=== PATIENT | male | born 1940 | race Caucasian/White ===

== ENCOUNTER 2016-11-30 01:44 | Emergency (ER) | payer OTHER ==
[~2016-11-30] VITALS: Ht 162.6 cm; Wt 74.8 kg
--- NOTE | 2016-11-30 03:44 | ED GI/GU/ABDOMINAL COMPLAINT ---
History of Present Illness General Chief Complaint: Male Genitourinary Problems Stated Complaint: URINATING BLOOD Source: patient Exam Limitations: no limitations Vital Signs & Intake/Output Vital Signs & Intake/Output ED Intake and Output 12/01 0000 11/30 1200 Intake Total 0 Output Total Balance 0 Intake, Oral 0 Patient 165 lb Weight Allergies Coded Allergies: No Known Allergies (11/30/16) Reconcile Medications Ciprofloxacin HCl (Cipro) 500 MG TABLET 1 TAB PO BID INFECTION Tamsulosin HCl (Flomax) 0.4 MG CAP.ER.24H 1 CAP PO DAILY KIDNEY STONE Triage Note: PT TO ED COMPLAINING OF "A LOT OF BLOOD IN URINE." PT STATES HE WOKE UP THIS AM TO URINATE AD NOTICED A LOT OF BLOOD AND CLOTS WITH URINATION. PT DENIES ANY PAIN. Triage Nurses Notes Reviewed? yes Onset: Abrupt Duration: day(s): (1) Timing: multiple episodes today Quality/Severity: moderate, PRESSURE Location: suprapubic Radiation: no radiation Activities at Onset: none No Modifying Factors: none Associated Symptoms: DYSURIA, HESITANCY HPI: This is a 76-year-old male who presents to the ER with chief complaint of sudden onset hematuria and difficulty urinating since 7:00 last night. Denies any fever or chills. He states it is difficult time voiding but then was finally able to push the urine out. Currently he does not feel like he has any retained urine. No history of similar symptoms. Patient has a history of elevated prostate levels and is just being monitored. No history of previous UTIs or urinary retention in the past. Past History Travel History Traveled to [place] past 21 day No Medical History Any Pertinent Medical History? see below for history Cardiovascular: hypertension, HIGH CHOLESTEROL Endocrine: diabetes Surgical History Surgical History: non-contributory Psychosocial History What is your primary language Ethiopian Tobacco Use: Never used ETOH Use: denies use Illicit Drug Use: denies illicit drug use Family History Hx Contributory? No Review of Systems Review of Systems Constitutional: Denies: chills, fever. EENTM: Reports: no symptoms. Respiratory: Denies: cough, short of breath. Cardiovascular: Denies: chest pain, palpitations. GI: Reports: abdominal pain (PRESSURE). Genitourinary: Reports: hematuria. Musculoskeletal: Reports: no symptoms. Skin: Reports: no symptoms. Neurological/Psychological: Reports: no symptoms. Hematologic/Endocrine: Reports: bleeding, polyuria. Denies: polydipsia. Immunologic/Allergic: Denies: splenectomy. All Other Systems: Reviewed and Negative Physical Exam Physical Exam General Appearance: well developed/nourished, alert, awake, anxious, mild distress Head: atraumatic, normal appearance Eyes: Bilateral: normal appearance, PERRL, EOMI. Ears, Nose, Throat, Mouth: hearing grossly normal, moist mucous membrane Neck: normal inspection, supple, full range of motion Respiratory: normal breath sounds, chest non-tender, no respiratory distress Cardiovascular: regular rate/rhythm Peripheral Pulses: 2+ radial (R), 2+ radial (L) Gastrointestinal: normal bowel sounds Back: normal inspection, normal range of motion Extremities: normal range of motion Neurologic/Psych: no motor/sensory deficits, awake, alert, oriented x 3, normal gait Skin: intact, normal color, warm/dry Core Measures ACS in differential dx? No Severe Sepsis Present: No Septic Shock Present: No Progress Differential Diagnosis: ureterolithiasis, urinary retention, UTI/pyelo, BPH, PROSTATITIS Plan of Care: Orders Procedure Date/time Status MISTAKE 11/30 035 Active Add-on Test (ER Only) 11/30 0316 Active URINALYSIS 11/30 152 Complete CULTURE,URINE 11/30 151 Active Laboratory Tests 11/30/16 0300: Urine Color Cancelled, Urine Clarity Cancelled, Urine pH Cancelled, Ur Specific [place]ill Cancelled, Urine Protein Cancelled, Urine Ketones Cancelled, Urine Nitrite Cancelled, Urine Bilirubin Cancelled, Urine Urobilinogen Cancelled, Ur Leukocyte Esterase Cancelled, Ur Microscopic Cancelled, Urine Hemoglobin Cancelled, Urine Glucose Cancelled 11/30/16 0153: Urine Color BLDY H, Urine Clarity TURBD H, Urine pH 7.0, Ur Specific Merrill 1.015, Urine Protein >=300 H, Urine Ketones 15 H, Urine Nitrite POS H, Urine Bilirubin NEG, Urine Urobilinogen >=8.0 H, Ur Leukocyte Esterase LARGE H, Ur Microscopic SEDIMENT EXAMINED, Urine RBC PACKD H, Urine WBC RARE, Ur Epithelial Cells RARE, Urine Hemoglobin LARGE H, Urine Glucose 100 H Microbiology 11/30 152 URINE ROUT: Urine Culture - RECD URINALYSIS, URINE CULTURE ORDERED. PO CIPRO GIVEN. ORTHOSTATICS NEGATIVE. VITAL SIGNS STABLE. (DUSTIN CHUNG,[place]) Initial ED EKG: none Departure Departure Time of Disposition: 410 Disposition: HOME OR SELF CARE Condition: Stable Clinical Impression Primary Impression: UTI (urinary tract infection) Secondary Impressions: Hematuria Referrals: UNKNOWN (PCP/Family) Additional Instructions: Take the Cipro and Flomax as directed. Drink plenty of fluids. Please follow up with urologist in the office. Return to the ER for any changing worsening symptoms, fever, chills, difficulty voiding or abdominal pain. Departure Forms: Customer Survey General Discharge Information Prescriptions: Current Visit Scripts Ciprofloxacin HCl (Cipro) 1 TAB PO BID #14 TAB Tamsulosin HCl (Flomax) 1 CAP PO DAILY #14 CAP
[2016-11-30] MEDS ORDERED: FLOMAX0.4 M1 PO (03:46)
[2016-11-30] MEDS ORDERED: CIPRO500 M1 PO (03:46)
[2016-11-30 04:17] VITALS: BP 143/67
== END 2016-11-30 04:34 ==
LOC: ERH 01:44
DX: N39.0 Urinary tract infection, site not specified (principal); R31.9 Hematuria, unspecified
CPT/HCPCS: 81001; 87086

== ENCOUNTER 2016-11-30 15:54 | Emergency (ER) | payer OTHER ==
[~2016-11-30] VITALS: Ht 162.6 cm; Wt 74.8 kg
[~2016-11-30 15:54] MED LIST: CIPRO500 M1 PO; FLOMAX0.4 M1 PO
[2016-11-30 16:06] VITALS: BP 150/69
== END 2016-11-30 17:42 | disposition admitted as inpatient to this hospital (09) ==
LOC: ERH 15:54
DX: R10.9 Unspecified abdominal pain (principal); R30.0 Dysuria